=== PATIENT | female | born 1990 | race Caucasian/White ===

== ENCOUNTER → 2024-09-22 17:07 | Outpatient (REF) | payer OTHER, SELFPAY | LOC: RAD 17:07 | PROVIDERS: ATTENDING PHYSICIAN Physician Assistant | DX: R10.30 Lower abdominal pain, unspecified (principal); R19.4 Change in bowel habit; R10.2 Pelvic and perineal pain | CPT/HCPCS: 74177; Q9967 ==

== ENCOUNTER → 2024-10-15 08:18 | Outpatient (REF) | payer OTHER, SELFPAY | LOC: HWRAD 08:18 | PROVIDERS: ATTENDING PHYSICIAN Physician Assistant | DX: R10.2 Pelvic and perineal pain (principal); N92.0 Excessive and frequent menstruation with regular cycle | CPT/HCPCS: 76830; 76856 ==

== ENCOUNTER → 2024-11-14 08:16 | Outpatient (REF) | payer OTHER, SELFPAY | LOC: MRI 08:16 | PROVIDERS: ATTENDING PHYSICIAN Physician Assistant | DX: M51.362 Other intervertebral disc degeneration, lumbar region with discogenic back pain and lower extremity pain (principal); M54.16 Radiculopathy, lumbar region | CPT/HCPCS: 72148 ==